=== PATIENT | male | born 1945 | race Two or more races ===

== ENCOUNTER 2016-08-09 22:19 | Observation (INO) | payer OTHER ==
[~2016-08-09] VITALS: Ht 172.7 cm; Wt 98.0 kg
[~2016-08-09 22:19] MED LIST: ACYCLOVIR800 MG PO; LISINOPRIL20 MG PO; ZOCOR10 MG PO
[2016-08-09 22:47] LABS: HEMATOCRIT 45.1 % (38.0-50.0); MCH 30.7 PG (29.0-34.0); MCHC 33.9 G/DL (30.0-36.0); MCV 90.4 FL (86-99); MEAN PLAT.VOLUME 10.3 uM^3 (9.0-12.4); PLATELET COUNT 199 K/uL (156-360); RBC DIS.WIDTH-CV 12.9 % (11.8-14.6); RBC DIS.WIDTH-SD 42.6 % (39-53); RED BLOOD COUNT 4.99 M/uL (4.00-5.50); WHITE BLOOD COUNT 8.6 K/uL (4.1-10.2)
[2016-08-09 22:58] LABS: CHLORIDE 103 mEq/L (99-109); POTASSIUM 3.6 mEq/L (3.7-5.4); SODIUM 139 mEq/L (136-147)
[2016-08-09 23:00] LABS: GLUCOSE 194 mg/dL (70-99)
[2016-08-09 23:01] LABS: ANION GAP 9 MEQ/L (2-14)
[2016-08-09 23:04] LABS: GFR ESTIMATE (CALCULATED) > 59 mL/min/
[2016-08-09 23:05] LABS: UREA NITROGEN (BUN) 20 mg/dL (9-23)
[2016-08-09 23:08] LABS: TROP-I INTERPRETATION NEGATIVE; TROPONIN-I < 0.01 ng/mL (0.0-0.30)
[2016-08-10] MEDS ORDERED: ZESTRIL40 MG PO (00:27)
[2016-08-10 01:32] LABS: TOTAL BILIRUBIN 0.5 mg/dL (0.0-1.0)
[2016-08-10 01:33] LABS: ALKALINE PHOSPHATASE 54 IU/L (3-129)
[2016-08-10 01:35] LABS: DIRECT BILIRUBIN 0.2 mg/dL (0.0-0.3)
[2016-08-10 01:37] LABS: LIPASE 43 U/L (1.0-51.0)
[2016-08-10 01:43] VITALS: BP 174/85
[2016-08-10 01:45] LABS: D-DIMER ELISA 0.77 mg/L FEU (< 0.57)
[2016-08-10 04:01] VITALS: BP 128/79
[2016-08-10 05:37] LABS: TROP-I INTERPRETATION NEGATIVE; TROPONIN-I < 0.01 ng/mL (0.0-0.30)
[2016-08-10 07:15] VITALS: BP 137/77
[2016-08-10 11:49] LABS: TROP-I INTERPRETATION NEGATIVE; TROPONIN-I < 0.01 ng/mL (0.0-0.30)
[2016-08-10 12:08] VITALS: BP 134/71
[2016-08-10] MEDS ORDERED: ASPIR-LOW81 MG PO (12:33)
== END 2016-08-10 13:01 | disposition home or self-care (01) ==
LOC: EME 22:19 → EDOF 08-10 00:41 → 5WEST 08-10 01:29
PROVIDERS: Emergency Medicine; Hospitalist
DX: R07.89 Other chest pain (principal); R91.1 Solitary pulmonary nodule; E78.5 Hyperlipidemia, unspecified; E11.9 Type 2 diabetes mellitus without complications; I10 Essential (primary) hypertension
CPT/HCPCS: 71020; 71275; 80048; 80076; 83690; 83880; 84484; 85027; 85379; 93005; 99281; 99284; G0378